=== PATIENT | female | born 1960 | race African-American/Black ===

== ENCOUNTER 2018-04-23 14:18 | Inpatient (IN) | END 2018-04-24 15:30 | disposition home or self-care (01) | DRG 190 ==

== ENCOUNTER 2018-08-31 14:09 | Emergency (ER) | payer OTHER ==
[~2018-08-31] VITALS: Wt 78.0 kg
[~2018-08-31 14:09] MED LIST: ALBU8.5H8 INH; FAMO20TA18 PO; FLUO40CA10 PO; FLUT1BLS INH; MONT10TA24 PO; PRED50TA PO; TRAZ300T15 PO; VALB40CA PO
[2018-08-31 14:11] VITALS: BP 107/66; PULSE 67; RESP 18
--- NOTE | 2018-08-31 16:13 | ERD ---
ER Documentation Chief Complaint Chief Complaint S/P [facility] HAS LEFT HAND PAIN, BACK PAIN HPI This is a 58-year-old female patient who presents to the emergency room with complaint of left hand pain. Patient said she was walking on sidewalk last night and tripped over a tree root falling onto her hand and face. No KO. Patient able to get herself up off the ground and walk away. Left hand is swollen. ROS All systems reviewed and are negative except as per history of present illness. Medications Home Meds Active Scripts Ibuprofen* (Motrin*) 600 Mg Tab, 600 MG PO Q6, #30 TAB Prov:EVELIA BAGLEY NP 08/31/18 Hydrocodone/Acetaminophen (Eden 5-325 Tablet) 1 Each Tablet, 1 TAB PO Q6H PRN for PAIN, #7 TAB Prov:EVELIA BAGLEY NP 08/31/18 Albuterol Sulfate* (Proair HFA*) 8.5 Gm Hfa.aer.ad, 2 PUFF INH Q6 for SOB, #1 INHALER Prov:SHAKIR MANNING NP 04/24/18 Montelukast Sodium* (Montelukast Sodium*) 10 Mg Tablet, 10 MG PO HS, #30 TAB Prov:SHKAIR MANNING NP 04/24/18 Famotidine* (Famotidine*) 20 Mg Tablet, 20 MG PO BID, #20 TAB Prov:SHAKIR MANNING NP 04/24/18 Fluticasone/Vilanterol (Breo Ellipta 200-25 Mcg INH) 1 Each Blst.w.dev, 1 INH INH DAILY, #1 UNIT Prov:SHAKIR MANNING NP 04/24/18 Prednisone* (Prednisone*) 50 Mg Tablet, 40 MG PO DAILY for 2 Days, TAB Prednisone 40 mg p.o. daily 2 days, then Prednisone 20 mg p.o. daily 2 days, then Prednisone 10 mg p.o. daily 2 days, then Prednisone 5 mg p.o. daily 2 days. Prov:SHAKIR MANNING NP 04/24/18 Reported Medications Valbenazine Tosylate (Ingrezza) Unknown Strength Capsule, PO, CAP PT DOSENT KNOW STRENGTH 04/21/18 Fluoxetine Hcl* (Prozac*) 40 Mg Capsule, 40 MG PO DAILY, CAP 04/21/18 Trazodone Hcl* (Trazodone Hcl*) 300 Mg Tablet, 300 MG PO QHS, #30 TAB 04/21/18 Allergies Allergies: Coded Allergies: No Known Allergy (Unverified , 04/21/18) PMhx/Soc History of Surgery: Yes (rt. hand surgery) Anesthesia Reaction: No Hx Neurological Disorder: No Hx Respiratory Disorders: Yes (asthma) Hx Cardiac Disorders: No Hx Psychiatric Problems: No Hx Alcohol Use: No Hx Substance Use: No Hx Tobacco Use: No Smoking Status: Never smoker FmHx Family History: No diabetes, No coronary disease, No other Physical Exam Vitals Vital Signs Date Temp Pulse Resp B/P (MAP) Pulse Ox O2 O2 Flow FiO2 Time Delivery Rate 08/31/18 98.1 67 18 107/66 99 14:11 (80) Physical Exam Const: No acute distress Head: Atraumatic, no maxillary or facial bone tenderness. Abrasion to upper lip, superficial, scabbed over, teeth under abrasion intact without loosening or pain. Patient missing most of the teeth in her mouth due to chronic conditions. Eyes: Normal Conjunctiva ENT: Normal External Ears, Nose and Mouth. Neck: Full range of motion. No meningismus. No cervical spine tenderness. Resp: Clear to auscultation bilaterally Cardio: Regular rate and rhythm, no murmurs Abd: Soft, non tender, non distended. Normal bowel sounds Skin: No petechiae or rashes Back: No midline or flank tenderness, no spinal tenderness, no bruises, no abrasions, no step-offs Ext: No cyanosis, or edema. Left UE: No tenderness to left shoulder, left elbow, left wrist. Full ROM and sensation intact to left UE. Left hand with swelling, bruising on palmar surface, no abrasions or lacerations limited ability to make fist or wiggle fingers due to swelling. Tenderness over fourth and fifth digits. Patient can wiggle fingers, do thumbs up sign, flex and extend pronate and supinate. Sensation intact, cap refill < 2 seconds. Neur: Awake and alert Psych: Normal Mood and Affect Results 24 hrs Current Medications Medications Dose Sig/Herman Start Time Status Last (Trade) Ordered Route PRN Stop Time Admin Dose Reason Admin 1 tab ONCE ONCE 08/31/18 DC 08/31/18 Acetaminophen PO 16:30 08/31/18 16:14 / 16:31 Hydrocodone Bitart (Eden ()) Procedures/MDM This is a 4-year-old female who presents with left hand pain status post fall last night. ED COURSE: The patient was stable throughout ED course. I kept the patient informed of imaging results throughout the ED course. DIAGNOSTIC IMAGING: IMPRESSION: 1. Fractures of the left medial fourth and fifth proximal phalanges with slight dorsal displacement of the fractured fourth proximal phalanx. 2. Healed fracture of the fifth metacarpal base. 3. Dorsal soft tissue swelling. 4. Mild joint space narrowing of the radiocarpal, intercarpal, the first through fifth metacarpophalangeal, and all of the interphalangeal joints. Read by radiologist. PROCEDURES: Posterior ulnar gutter splint placed extending to fingers 3-5. Patient tolerated splint well, instructions provided on splint care and ER precautions. +csm post splint placement. MEDICATIONS GIVEN: Eden 5 mg Patient tolerated medication well with no adverse reactions. Patient reported improvement in pain. Fall Risk Assessment: No evidence of cardiac, neurologic, or metabolic cause of fall. Fall risk and home safety assessed and appropriate for outpatient care and work up. Patient has fracture to left medial fourth and fifth proximal phalanges that is appropriate for outpatient follow-up. There is low suspicion for ligament or tendon injury or compartment syndrome. Patient has been prescribed narcotic medications. Patient was instructed that narcotics cannot be refilled from our emergency department and these medications are for temporary acute condition and should be replaced by use of Tylenol, ibuprofen, and add adjunctive therapy such as use of heat or cooling. Patient instructed that narcotics are habit forming and can lead to dependency. Patient instructed to use stool softener and increase hydration while taking narcotics. Patient instructed to not operate heavy machinery, operate vehicle, care for small children while on narcotic medication. [place] database reviewed for controlled substance history. There is no indication the patient is abusing prescription medications or is at risk for misuse. History and Physical exam demonstrate the prescribed medication is indicated for the treatment of the patient's condition. Departure Condition: Stable Referrals: [facility] Additional Instructions: Thank you very much for allowing us to participate in your care. Your health and safety is our top priority at [facility]. Call your primary care doctor TOMORROW for an appointment during the next 2-4 days and bring all the information and medications prescribed. Have prescriptions filled and follow precisely the directions on the label. If the symptoms get worse and your provider is unavailable, return to the [facility] immediately. EVELIA BAGLEY NP Aug 31, 2018 16:13
[2018-08-31] MEDS ORDERED: HYDROCODONE/APAP (5/325) TAB PO ONE (16:30)
[2018-08-31] MEDS ORDERED: HYDR-4011 PO (17:36)
[2018-08-31] MEDS ORDERED: IBUP-1542 PO (17:36)
== END 2018-08-31 17:52 | disposition home or self-care (01) ==
LOC: FTE 14:09
DX: S62.625A Displaced fracture of middle phalanx of left ring finger, initial encounter for closed fracture (principal); J45.909 Unspecified asthma, uncomplicated; S62.617A Displaced fracture of proximal phalanx of left little finger, initial encounter for closed fracture; W01.0XXA Fall on same level from slipping, tripping and stumbling without subsequent striking against object, initial encounter; Y92.9 Unspecified place or not applicable
CPT/HCPCS: 29125; 73130; Z7502; Z7610